=== PATIENT | female | born 1955 | race African-American/Black ===

== ENCOUNTER 2020-06-11 03:42 | Emergency (ER) | payer MEDICARE, MEDICAID, SELFPAY ==
[2020-06-11 03:46] VITALS: BP 154/83; PULSE 88; RESP 18; TEMP 36.4; O2SAT 100
--- NOTE | 2020-06-11 03:51 | ED.WOUNDLAC ---
HPI - Wound/Laceration General Chief Complaint: Wound/Laceration Stated Complaint: HAND LAC Time Seen by Provider: 06/11/20 03:43 Source: RN notes reviewed History of Present Illness HPI narrative: Patient presents emergency department from home for right hand laceration. Patient states laceration occurred approximately midnight tonight states that she was cleaning and is unsure exactly what she cut her hand on. States she did clean the wound but continued to have some bleeding she came to emergency department for further evaluation. Unsure of her last tetanus injection denies any other symptoms at this time denies any numbness or tingling Related Data Allergies Allergy/AdvReac Type Severity Reaction Status Date / Time No Known Allergies Allergy Unverified 01/02/18 15:40 Review of Systems Review of Systems: Narrative: Gen.: Denies fevers or chills Musculoskeletal: Reports right hand pain Neuro: Denies numbness, tingling, weakness Skin: See HPI Endo: Denies DM PMFSH Past Medical History Medical History (Updated 06/11/20 @ 04:57 by Liam Huynh DO) Diabetes mellitus Family History Family History (Updated 12/23/17 @ 13:45 by DOCTOR UNKNOWN) Other Carcinoma of colon Diabetes mellitus Family history of cardiovascular disease Family history of thyroid disease Social History Social History Smoking status: Never smoker Alcohol intake: never Gender identity (if verbalized by the patient): Female Exam Narrative: Exam Narrative: APPEARANCE: No acute distress, nontoxic, resting in bed Eyes: EOMI HEENT: Normocephalic, atraumatic, RESPIRATORY: No respiratory distress MUSCULOSKELETAl: Full flexion-extension of all 5 MCP and IP joints of the right hand, radial pulse 2+, right hand neurovascularly intact NEURO: Awake and alert. Following commands, speech normal, no focal deficits SKIN:: Warm, dry. Normal Color 2 cm flap laceration over the palmar aspect of the right hand in the thenar eminence no foreign body, mild venous bleeding Course Vital Signs Vital signs: Vital Signs Temperature 97.5 F L 06/11/20 03:46 Pulse Rate 88 06/11/20 03:46 Respiratory Rate 18 06/11/20 03:46 Blood Pressure 154/83 H 06/11/20 03:46 Pulse Oximetry 100 06/11/20 03:46 Temperature 97.5 F L 06/11/20 03:46 Pulse Rate 88 06/11/20 03:46 Respiratory Rate 18 06/11/20 03:46 Blood Pressure 154/83 H 06/11/20 03:46 Pulse Oximetry 100 06/11/20 03:46 Procedures Laceration Laceration 1: ====== Skin Level ====== ====== Subcutaneous Layer ====== ====== Muscle Layer ====== ====== Tendon Layer ====== Dressing: Verbal consent was obtained prior to the procedure. The wound was cleaned with Betadine and irrigated with copious amounts of normal saline. Lidocaine 1% was used for anesthesia. Wound was explored is no foreign body seen. The wound was then closed with 4 4-0 nylon in simple interrupted fashion. A sterile dressing was applied following the procedure. Patient tolerated the procedure well Discharge Plan Discharge Clinical Impression: Laceration of right hand Patient Disposition: Home, Self-Care Condition: Stable Instructions: Antibiotic Form, Laceration (ED) Additional Instructions: Return for bleeding from wound, signs of infection or any other symptoms of concern your stitches need to be removed in 7-10 days and you may go to your physician or return to the emergency department for removal. Follow-up/Referrals: Anthony,Rossy Wiseman MD [Primary Care Provider] - 2 Days Time of Disposition: 04:57
[2020-06-11] MEDS: TETANUS,DIPHTHERIA,AC PERTUSSIS ADULT (0.5 ML) BOOSTRIX IM (03:55)
[2020-06-11 05:15] VITALS: BP 122/70; PULSE 88; RESP 18; O2SAT 98
== END 2020-06-11 05:16 | disposition home or self-care (01) ==
PROVIDERS: Emergency Provider Emergency Medicine; PCP Family Medicine
DX: S61.411A Laceration without foreign body of right hand, initial encounter (principal); E11.9 Type 2 diabetes mellitus without complications; Z23 Encounter for immunization; W26.9XXA Contact with unspecified sharp object(s), initial encounter
CPT/HCPCS: 12001; 90471; 90715; 99282

== ENCOUNTER 2022-02-28 08:49 | Outpatient (CLI) | payer MEDICARE, MEDICAID, SELFPAY ==
--- NOTE | ~2022-02-28 | XR_ITS ---
EXAMINATION: XR lumbar spine 2-3V EXAM DATE: 02/28/2022 09:12 INDICATION: Pain In Right Leg;LBP . TECHNIQUE: Lumber spine frontal, lateral, lateral L5-S1 projections for interpretation. There is no prior study for comparison. FINDINGS: Moderate L5-S1 disc disease, mild to moderate at L2-3. There is mild to moderate lumbar fac et arthropathy. There are no acute fractures identified. The vertebral bodies are aligned in the AP d imension. No spondylolysis. Sacrum, sacroiliac joints, sacral arcuate lines are intact. Calcificati ons in the pelvis are believed to be phleboliths. IMPRESSION: Mild to moderate lumbar spondylosis. Reviewed, dictated and finalized at location A.
== END 2022-02-28 08:50 | disposition home or self-care (01) ==
PROVIDERS: PCP Family Medicine; Visit Provider Family Medicine
DX: M47.817 Spondylosis without myelopathy or radiculopathy, lumbosacral region (principal); M79.604 Pain in right leg
CPT/HCPCS: 72100

== ENCOUNTER → 2022-03-25 08:55 | Outpatient (CLI) | payer MEDICARE, MEDICAID, SELFPAY ==
--- NOTE | ~2022-03-25 | MR_ITS ---
EXAMINATION: MR lumbar spine wo con DATE: 03/25/2022 09:28 INDICATION: Low back pain. TECHNIQUE: Magnetic resonance imaging (MRI) of the lumbar spine was performed without intravenous con trast. Sequences included sagittal T2-weighted FSE, sagittal T2-weighted FS FSE, sagittal T1-weighted FSE, and axial T2-weighted FSE. COMPARISON: Lumbar spine radiographs 02/28/2022 FINDINGS: There is 3 degrees dextrocurvature of lumbar spine. Vertebral body heights are normal. Ther e is mildly decreased disc height at L2-L3 and L3-L4. There is moderately decreased disc height at L5 -S1 with endplate remodeling. The distal spinal cord signal intensity is normal. The conus medullaris is at T12-L1. The following disc levels are specifically discussed: L1-L2: The disc does not extend beyond the endplate margin. There is mild bilateral facet joint osteo arthritis. There is no neural foraminal stenosis. There is no central canal stenosis. L2-L3: The disc is bulging and has an annular fissure. There is severe right and moderate left facet joint osteoarthritis. There is mild bilateral neural foraminal stenosis. There is mild central canal stenosis. L3-L4: The disc is bulging and has an annular fissure. There is moderate bilateral facet joint osteoa rthritis. There is mild bilateral neural foraminal stenosis. There is mild central canal stenosis. L4-L5: The disc is bulging and has an annular fissure. There is severe bilateral facet joint osteoart hritis. There is mild bilateral neural foraminal stenosis. There is mild central canal stenosis. L5-S1: The disc is bulging and has an annular fissure. There is moderate bilateral facet joint osteoa rthritis. There is moderate bilateral neural foraminal stenosis. There is mild central canal stenosis . IMPRESSION: 1. Moderate lumbar spondylosis. Reviewed, dictated and finalized at location B.
== END ==
PROVIDERS: PCP Family Medicine; Visit Provider Family Medicine
DX: M47.817 Spondylosis without myelopathy or radiculopathy, lumbosacral region (principal); M48.07 Spinal stenosis, lumbosacral region
CPT/HCPCS: 72148

== ENCOUNTER 2024-04-06 08:28 | Emergency (ER) | payer MEDICARE, SELFPAY ==
--- NOTE | 2024-04-06 08:35 | ED.URI ---
HPI - URI/Sore Throat General Chief Complaint: Ear Stated Complaint: Earache and Dizziness Time Seen by Provider: 04/06/24 08:56 Source: patient and RN notes reviewed Mode of arrival: ambulatory Limitations: no limitations History of Present Illness HPI Narrative: 69-year-old female presents with concern for left earache, sore throat on the left side, dizziness when she looks down or stands up. She reports mild intermittent headache. She denies thunderclap headache. She denies nasal congestion or rhinorrhea. She denies taking any medications for her symptoms. Reports symptoms started on Friday. MD elicited complaint: sore throat and other (Ear pain) Related Data Home Medications Medication Instructions Recorded Confirmed amlodipine 5 mg tablet mg 04/06/24 dapagliflozin propanediol 5 mg mg 04/06/24 tablet (Farxiga) empagliflozin 25 mg tablet mg 04/06/24 (Jardiance) famotidine 20 mg tablet mg 04/06/24 gabapentin 100 mg capsule mg 04/06/24 ibuprofen 800 mg tablet mg 04/06/24 ipratropium bromide 42 mcg (0.06 intranasal 04/06/24 %) nasal spray lisinopril 20 mg tablet mg 04/06/24 metformin 1,000 mg tablet mg 04/06/24 pantoprazole 40 mg tablet,delayed mg PO 04/06/24 release pravastatin 40 mg tablet mg 04/06/24 semaglutide 1 mg/dose (4 mg/3 mL) mg subcut 04/06/24 subcutaneous pen injector (Ozempic) Allergies Allergy/AdvReac Type Severity Reaction Status Date / Time No Known Allergies Allergy Unverified 04/06/24 08:55 Review of Systems Review of Systems: CONSTITUTIONAL: Denies malaise, chills, sweats, or fever. EYES: Denies visual changes, redness, or discharge. ENT: Denies rhinorrhea, congestion, sinus pain. Reports left ear pain left-sided sore throat CARDIOVASCULAR: Denies chest pain, palpitations, or edema. RESPIRATORY: Denies cough. Denies dyspnea. GASTROINTESTINAL: Denies abdominal pain, nausea, vomiting, diarrhea SKIN: Denies rash or itching. MUSCULOSKELETAL: Denies myalgia. NEUROLOGIC: Reports intermittent headache, positional dizziness. All systems reviewed & are unremarkable except as noted in HPI and below PMFSH Past Medical History Medical History (Updated 04/06/24 @ 09:19 by La Maddox NP) Diabetes mellitus Family History Family History (Updated 12/23/17 @ 13:45 by DOCTOR UNKNOWN) Other Carcinoma of colon Diabetes mellitus Family history of cardiovascular disease Family history of thyroid disease Social History Social History Smoking status: Never smoker Alcohol intake: never Gender identity (if verbalized by the patient): Female Comments At time of signature, agree with nursing past medical, surgical, social and family history. There is no relevant family history pertinent to the presenting complaint Exam Narrative: GENERAL: Well-appearing, well-nourished, and in no acute distress. HEAD: Normocephalic EYES: PERRLA, conjunctivae clear ENT: Nares clear, clear discharge. Mucous membranes moist. TM pearly serra with dull light reflex the left, sharp on the right; no tragal tenderness. Oropharynx not erythematous without lesions. Tonsils not enlarged and without exudate, no drooling, no hoarseness, no trismus, uvula midline. NECK: Supple. No lymphadenopathy CHEST: Clear to auscultation, breath sounds equal. No wheezing, rhonchi, rales, or stridor. No respiratory distress, speaks in full sentences. HEART: Regular rate and rhythm. No murmur heard. SKIN: Warm, dry, no rash. NEURO: Alert and oriented x3. No focal deficits, cranial nerves 2-12 grossly intact. Cori-Hallpike test inconclusive, patient experienced dizziness when sitting up from lying PSYCH: Normal mood and affect Course Course Emergency Course: Patient is aware of diagnosis, understands and agrees to treatment plan. Anticipatory guidance given. Patient agrees to follow-up as directed and is aware of reasons to seek ca
[2024-04-06 08:44] VITALS: BP 141/76; PULSE 85; RESP 16; TEMP 36.4; O2SAT 98
== END 2024-04-06 09:25 | disposition home or self-care (01) ==
PROVIDERS: Emergency Provider Nurse Practitioner; PCP Family Medicine
DX: H92.02 Otalgia, left ear (principal); R42 Dizziness and giddiness; E11.9 Type 2 diabetes mellitus without complications
CPT/HCPCS: 87081; 87880; 99213; G0463

== ENCOUNTER 2025-02-01 16:53 | Emergency (ER) | payer MEDICARE, SELFPAY ==
[2025-02-01 17:06] VITALS: BP 125/67; PULSE 88; RESP 16; TEMP 36.3; O2SAT 100
--- NOTE | 2025-02-01 17:29 | ED_ITS ---
HPI - Dizziness General Chief Complaint: Headache Stated Complaint: light headed/headaches Time Seen by Provider: 02/01/25 17:30 Source: patient Mode of arrival: ambulatory Limitations: no limitations History of Present Illness HPI Narrative: 69-year-old female presents with concern for lightheadedness for 1 week. She reports intermittent mild headaches, she currently does not have a headache. She describes the dizziness as feeling lightheaded. She denies room spinning. She denies any exacerbating or relieving factors for these feelings. She denies any recent illnesses, nasal congestion, rhinorrhea, sore throat. She denies weakness in any extremity, difficulty speaking, difficulty swallowing. She had dizziness last year and was treated with meclizine successfully. She denies chest pain, shortness of breath. She denies dysuria, urgency. Reports frequency. Reports she drinks plenty of water. Patient is diabetic, she regularly checks her blood sugar, her last blood sugar prior to arrival was in the 120s. She recently stopped taking 2 of her regular medications, she cannot remember what the name of that is. MD elicited complaint: lightheadedness Related Data Home Medications ?Medication ?Instructions ?Recorded ?Confirmed ?Last Taken ?Type amlodipine 5 mg tablet mg 04/06/24 Unknown History dapagliflozin propanediol 5 mg mg 04/06/24 Unknown History tablet (Farxiga) empagliflozin 25 mg tablet mg 04/06/24 Unknown History (Jardiance) famotidine 20 mg tablet mg 04/06/24 Unknown History gabapentin 100 mg capsule mg 04/06/24 Unknown History ibuprofen 800 mg tablet mg 04/06/24 Unknown History ipratropium bromide 42 mcg (0.06 intranasal 04/06/24 Unknown History %) nasal spray lisinopril 20 mg tablet mg 04/06/24 Unknown History metformin 1,000 mg tablet mg 04/06/24 Unknown History pantoprazole 40 mg tablet,delayed mg PO 04/06/24 Unknown History release pravastatin 40 mg tablet mg 04/06/24 Unknown History semaglutide 1 mg/dose (4 mg/3 mL) mg subcut 04/06/24 Unknown History subcutaneous pen injector (Ozempic) Allergies Allergy/AdvReac Type Severity Reaction Status Date / Time No Known Allergies Allergy Verified 02/01/25 16:57 Review of Systems Review of Systems: CONSTITUTIONAL: Denies malaise, chills, sweats, or fever. EYES: Denies visual changes ENT: Denies rhinorrhea, congestion, sinus pain, otalgia or sore throat. CARDIOVASCULAR: Denies chest pain, palpitations, or edema. RESPIRATORY: Denies cough or dyspnea. GASTROINTESTINAL: Denies abdominal pain, nausea, vomiting, diarrhea, GENITOURINARY: Denies dysuria or hematuria. Reports urine frequency SKIN: Denies rash or itching. MUSCULOSKELETAL: Denies back pain, joint pain, or myalgia. NEUROLOGIC: Denies numbness, weakness. Reports mild intermittent headache, lightheadedness. All systems reviewed & are unremarkable except as noted in HPI and below PMFSH Past Medical History Medical History (Updated 02/01/25 @ 18:17 by La Maddox NP) Diabetes mellitus Family History Family History (Updated 12/23/17 @ 13:45 by DOCTOR UNKNOWN) Other Carcinoma of colon Diabetes mellitus Family history of cardiovascular disease Family history of thyroid disease Social History Social History Smoking status: Never smoker Alcohol intake: never Gender identity (if verbalized by the patient): Female Comments At time of signature, agree with nursing past medical, surgical, social and family history. There is no relevant family history pertinent to the presenting complaint Exam Narrative: GENERAL: Well-appearing, well-nourished, and in no acute distress. HEAD: Normocephalic, atraumatic. EYES: PERRLA, sclera clear, and EOMI. No nystagmus. ENT: Nares clear, turbinates pink, no rhinorrhea or epistaxis. Mucous membranes moist. TM pearly serra with sharp light reflex bilaterally; no tragal tenderness. Oropharynx without erythema or lesions. Tonsils not enlarged and without exudate. NECK: Supple. No lymphadenopathy. No jugular venous distension or carotid bruits. Carotids were easily palpable bilaterally. CHEST: No respiratory distress. Clear to auscultation. No bony deformities, no asymmetry. Speaks in full sentences. HEART: Regular rate and rhythm. No murmur heard. Normal peripheral pulses. EXTREMITIES: Normal range of motion. No edema. Normal strength and sensation. SKIN: Warm, dry, no visible rash. NEURO: Alert and oriented x3. No focal deficits. Cranial nerves II through XII grossly intact PSYCH: Normal mood and affect Course Course Emergency Course: I discussed limited for patient's complaint. All testing done here was normal. Patient's exam was unremarkable. I offered transfer to emergency room or follow-up with patient's doctor tomorrow. She reports she will call her doctor tomorrow. Patient was given reasons to go to the emergency room if symptoms change or worsen. Anticipatory guidance given. Patient agrees to follow-up as directed and is aware of reasons to seek care at the emergency department. Portions of this record may have been created with voice recognition software Level of Care: Express Care Visit Vital Signs Vital signs: Vital Signs Temperature 97.4 F L 02/01/25 17:06 Pulse Rate 88 02/01/25 17:06 Respiratory Rate 16 02/01/25 17:06 Blood Pressure 125/67 02/01/25 17:06 Pulse Oximetry 100 02/01/25 17:06 Oxygen Delivery Room Air 02/01/25 17:06 Temperature 97.4 F L 02/01/25 17:06 Pulse Rate 88 02/01/25 17:06 Respiratory Rate 16 02/01/25 17:06 Blood Pressure 125/67 02/01/25 17:06 Pulse Oximetry 100 02/01/25 17:06 Oxygen Delivery Room Air 02/01/25 17:06 Reviewed. MDM - Dizziness ECG Data EKG #1: ECG completion date: 02/01/25 ECG completion time: 17:48 Prior ECG tracings: available for review Interpretation: Rate 85, PA interval 148, QRS duration 77 EKG Interpretation: normal rate and sinus rhythm Critical Care Time Critical Care Time Critical Care Time: No Discharge Plan Discharge Clinical Impression: Lightheadedness Patient Disposition: Home, Self-Care Condition: Stable Instructions: Lightheadedness (ED) Additional Instructions: 1) Please follow-up with your primary care doctor in the next 1-2 days. 2) If you have any worsening of symptoms or any other urgent concerns please go to the ER. 3) Please take medications as prescribed and continue taking your home medications as usual. 4) Please read and follow information included in discharge instructions. Patient Language: Slovenian Prescriptions: New meclizine 12.5 mg tablet 12.5 mg PO TID PRN (Reason: dizziness) Qty: 10 0RF No Action pravastatin 40 mg tablet ibuprofen 800 mg tablet lisinopril 20 mg tablet amlodipine 5 mg tablet famotidine 20 mg tablet pantoprazole 40 mg tablet,delayed release (DR/EC) PO metformin 1,000 mg tablet gabapentin 100 mg capsule ipratropium bromide 42 mcg (0.06 %) spray,non-aerosol INTRANASAL dapagliflozin propanediol [Farxiga] 5 mg tablet Jardiance 25 mg tablet Ozempic 1 mg/dose (4 mg/3 mL) pen injector SUBCUT fluticasone propionate [Flonase Allergy Relief] 50 mcg/actuation spray ,suspension 2 spray NASAL DAILY 14 Days Qty: 15.8 0RF Rx Instructions: administer into each nostril meclizine 25 mg tablet 25 mg PO BID PRN (Reason: dizziness) Qty: 14 0RF Follow-up/Referrals: Rossy Cruz MD [Primary Care Provider] - Time of Disposition: 18:18
--- NOTE | 2025-02-01 17:37 | ECG_ITS ---
Test Date: 2025-02-01 17:50:02 Measurements Intervals [place] Rate: 85 P: 55 UT: 148 QRS: 39 QRSD: 77 T: 42 QT: 325 QTc: 387 Interpretive Statements SINUS RHYTHM No previous ECG available for comparison Electronically Signed On 02-02-2025 12:46:02 CDT by Dulce Melchor M.D.
[2025-02-01 18:00] LABS: EDUAAPPEAR Clear; EDUABILI Negative (Negative); EDUABLOOD Negative (Negative); EDUACOLOR1 Yellow; EDUAGLUCOSE 2+ (Negative); EDUAKETONE Trace (Negative); EDUALEUKO Negative (Negative); EDUANITRATE Negative (Negative); EDUAPH 5.5; EDUAPROTEIN Negative (Negative); EDUASPGRAVITY 1.025; EDUAUROBILI 0.2
== END 2025-02-01 18:20 | disposition home or self-care (01) ==
PROVIDERS: Emergency Provider Nurse Practitioner; PCP Family Medicine
DX: R42 Dizziness and giddiness (principal); E11.9 Type 2 diabetes mellitus without complications
CPT/HCPCS: 81003; 93005; 99213; G0463

== ENCOUNTER 2025-10-30 13:58 | Emergency (ER) | payer MEDICARE, SELFPAY ==
[2025-10-30 14:05] VITALS: BP 137/80; PULSE 94; RESP 18; TEMP 36.8; O2SAT 100
--- NOTE | 2025-10-30 14:16 | ED_ITS ---
HPI - Wound/Laceration General Chief Complaint: Wound/Laceration Stated Complaint: finger cut Time Seen by Provider: 10/30/25 14:11 Source: patient and RN notes reviewed Mode of arrival: ambulatory Limitations: no limitations History of Present Illness HPI narrative: 70-year-old female patient with history of diabetes presents today complaining of a laceration to the pad of her left thumb that was sustained approximately 1 week ago with a knife when she was cutting meat at home. She has been cleaning the wound with peroxide and using bacitracin but states persistent pain and redness. She is not up-to-date on her tetanus vaccine. Related Data Home Medications ?Medication ?Instructions ?Recorded ?Confirmed ?Last Taken ?Type amlodipine 5 mg tablet mg 04/06/24 Unknown History dapagliflozin propanediol 5 mg mg 04/06/24 Unknown Hi story tablet (Farxiga) empagliflozin 25 mg tablet mg 04/06/24 Unknown Histor y (Jardiance) gabapentin 100 mg capsule mg 04/06/24 Unknown History ibuprofen 800 mg tablet mg 04/06/24 Unknown History ipratropium bromide 42 mcg (0.06 intranasal 04/06/24 Unknown History %) nasal spray lisinopril 20 mg tablet mg 04/06/24 Unknown History metformin 1,000 mg tablet mg 04/06/24 Unknown History pantoprazole 40 mg tablet,delayed mg PO 04/06/24 Unkn own History release pravastatin 40 mg tablet mg 04/06/24 Unknown History magnesium 200 mg tablet 200 mg PO DAILY 10/30/25 Un known History Allergies Allergy/AdvReac Type Severity Reaction Status Date / Time No Known Allergies Allergy Verified 10/30/25 14:11 [facility] Past Medical History Medical History Diabetes mellitus Family History Family History Other Carcinoma of colon Diabetes mellitus Family history of cardiovascular disease Family history of thyroid disease Social History Social History Smoking status: Never smoker Alcohol intake: never Gender identity (if verbalized by the patient): Female Comments At time of signature, I have reviewed and agree with nursing past medical, surgical, social and family history unless otherwise noted. Please see nursing chart for further information. There is no relevant family history pertinent to the presenting complaint Exam Narrative: GENERAL: Well-appearing, well-nourished, and in no acute distress. HEAD: Normocephalic, atraumatic. EYES: EOMI. No redness or drainage. Conjunctivae normal. ENT: Mucous membranes pink and moist. NECK: Normal AROM. CHEST: No respiratory distress. EXTREMITIES: Left thumb: 1 cm full-thickness linear laceration to the pad of the left thumb. Mild surrounding erythema and tenderness. No active drainage. Distal sensation intact. Capillary refill normal. Full range of motion of the thumb with some increased pain. SKIN: Warm, dry, no rash. Capillary refill normal. Normal skin turgor. NEURO: No focal deficits. Alert and oriented x3. Gait steady. PSYCH: Normal affect. No signs of depression or anxiety. Course Course Level of Care: Express Care Visit Vital Signs Vital signs: Vital Signs Temperature 98.3 F 10/30/25 14:05 Pulse Rate 94 10/30/25 14:05 Respiratory Rate 18 10/30/25 14:05 Blood Pressure 137/80 10/30/25 14:05 Pulse Oximetry 100 10/30/25 14:05 Oxygen Delivery Room Air 10/30/25 14:05 Temperature 98.3 F 10/30/25 14:05 Pulse Rate 94 10/30/25 14:05 Respiratory Rate 18 10/30/25 14:05 Blood Pressure 137/80 10/30/25 14:05 Pulse Oximetry 100 10/30/25 14:05 Oxygen Delivery Room Air 10/30/25 14:05 reviewed MDM MDM Narrative Medical decision making narrative: 70-year-old female patient with history of diabetes presents today complaining of a laceration to the pad of her left thumb that was sustained approximately 1 week ago with a knife when she was cutting meat at home. She has been cleaning the wound with peroxide and using bacitracin but states persistent pain and redness. She is not up-to-date on her tetanus vaccine. Upon exam,1 cm full-thickness linear laceration to the pad of the left thumb. Mild surrounding erythema and tenderness. No active drainage. Distal sensation intact. Capillary refill normal. Full range of motion of the thumb with some increased pain. Tetanus shot will be updated. Recommend patient stop using peroxide and use soap and water daily. Keep covered with Band-Aid. Wound will heal with secondary intention. Will start on course Keflex for mild infection. Anticipatory guidance and ED precautions given. Patient agrees with plan. Vital signs stable. Differential Diagnosis Differential Diagnosis: Cellulitis, abscess Critical Care Time Critical Care Time Critical Care Time: No Discharge Plan Discharge Clinical Impression: Infected finger laceration Patient Disposition: Home Condition: Stable Instructions: Antibiotic Form, Cellulitis (ED) Additional Instructions: Please take the Keflex as prescribed until gone. Wash with soap and water daily and keep covered until scabbed over. As discussed, please go to the ER immediately if you develop worsening symptoms such as pus drainage cough fever, worsening redness, swelling, or red streaking up your finger or hand. Follow-up with your PCP in 3 days if symptoms are not improving. Patient Language: Korean Prescriptions: New cephalexin 500 mg capsule 500 mg PO Q6H 7 Days Qty: 28 0RF No Action pravastatin 40 mg tablet ibuprofen 800 mg tablet lisinopril 20 mg tablet amlodipine 5 mg tablet pantoprazole 40 mg tablet,delayed release (DR/EC) PO metformin 1,000 mg tablet gabapentin 100 mg capsule ipratropium bromide 42 mcg (0.06 %) spray,non-aerosol INTRANASAL dapagliflozin propanediol [Farxiga] 5 mg tablet Jardiance 25 mg tablet fluticasone propionate [Flonase Allergy Relief] 50 mcg/actuation spray,suspension 2 spray NASAL DAILY 14 Days Qty: 15.8 0RF Rx Instructions: administer into each nostril magnesium 200 mg tablet 200 mg PO DAILY Follow-up/Referrals: Rossy Cruz MD [Primary Care Provider, Family Practice] Time of Disposition: 14:20
[2025-10-30] MEDS: TETANUS,DIPHTHERIA,AC PERTUSSIS ADULT (0.5 ML) BOOSTRIX IM (14:26)
== END 2025-10-30 14:33 | disposition home or self-care (01) ==
PROVIDERS: Emergency Provider Nurse Practitioner; PCP Family Medicine
DX: S61.012A Laceration without foreign body of left thumb without damage to nail, initial encounter (principal); L08.9 Local infection of the skin and subcutaneous tissue, unspecified; W26.0XXA Contact with knife, initial encounter; Z23 Encounter for immunization; E11.9 Type 2 diabetes mellitus without complications; Z79.84 Long term (current) use of oral hypoglycemic drugs
CPT/HCPCS: 90471; 90715; 99213; G0463